=== PATIENT | female | born 1935 | race Caucasian/White ===

== ENCOUNTER 2018-05-25 13:39 | Emergency (ER) | payer MEDICARE, OTHER ==
[~2018-05-25] VITALS: Ht 160 cm; Wt 72.6 kg
[2018-05-25] MEDS ORDERED: LOSA50 PO (13:48)
[2018-05-25] MEDS ORDERED: DICLOFENAC SOD100 G1 TOP (13:48)
[2018-05-25] MEDS ORDERED: PRAVASTATIN SOD10 MG PO (13:48)
[2018-05-25] MEDS ORDERED: Hydrochloroth12.5 MG PO (13:48)
[2018-05-25] MEDS ORDERED: Norco 5-325 Ta1 EACH PO (16:35)
== END 2018-05-25 16:30 | disposition home or self-care (01) ==
LOC: ER 13:39
DX: S82.851A Displaced trimalleolar fracture of right lower leg, initial encounter for closed fracture (principal); E78.5 Hyperlipidemia, unspecified; I10 Essential (primary) hypertension; Z88.5 Allergy status to narcotic agent; Z88.8 Allergy status to other drugs, medicaments and biological substances; Z79.899 Other long term (current) drug therapy; W01.0XXA Fall on same level from slipping, tripping and stumbling without subsequent striking against object, initial encounter; Y92.096 Garden or yard of other non-institutional residence as the place of occurrence of the external cause
CPT/HCPCS: 27818; 73590; 73600; 73610; 96374-59; 99283-25; J3010

== ENCOUNTER 2018-05-30 11:15 | Day surgery (SDC) | payer MEDICARE, OTHER ==
[~2018-05-30] VITALS: Ht 160 cm; Wt 70.3 kg
[~2018-05-30 11:15] MED LIST: DICLOFENAC SOD100 G1 TOP; Hydrochloroth12.5 MG PO; LOSA50 PO; Norco 5-325 Ta1 EACH PO; PRAVASTATIN SOD10 MG PO
== END 2018-05-30 15:05 | disposition home or self-care (01) ==
LOC: ORSCSDS 11:15
PROVIDERS: Orthopaedic Surgery
PROC: 0QSJ04Z Reposition Right Fibula with Internal Fixation Device, Open Approach (ICD-10-PCS; principal; 2018-05-30 12:30)
DX: S82.841A Displaced bimalleolar fracture of right lower leg, initial encounter for closed fracture (principal); I10 Essential (primary) hypertension; E78.5 Hyperlipidemia, unspecified; Z79.899 Other long term (current) drug therapy
CPT/HCPCS: C1713; J0690; J1100; J2250; J2405; J2704; J3010; J7120

== ENCOUNTER → 2019-10-10 | Outpatient (CLI) | payer MEDICARE, OTHER ==
[~2019-10-10] MED LIST changes: +CEPH500 PO; +ONDA4ODT MM; +Percocet 5-3251 EACH PO
[2019-10-11 15:54] LABS: Adenovirus F 40/41 Not Detected (NOT DETECT); Astrovirus Not Detected (NOT DETECT); Campylobacter Sp Not Detected (NOT DETECT); Cryptosporidium Not Detected (NOT DETECT); Cyclospora Cayetanensis Not Detected (NOT DETECT); E. Coli O157 Not Detected (NOT DETECT); Entamoeba Histolytica Not Detected (NOT DETECT); Enteroaggregative E. coli-EAEC Not Detected (NOT DETECT); Enteropathogenic E. coli-EPEC Not Detected (NOT DETECT); Enterotoxigenic E. coli-ETEC Not Detected (NOT DETECT); Giardia Lamblia Not Detected (NOT DETECT); Norovirus GI/GII Not Detected (NOT DETECT); Plesiomonas Shigelloides Not Detected (NOT DETECT); Rotavirus A Not Detected (NOT DETECT); Salmonella Sp Not Detected (NOT DETECT); Sapovirus Not Detected (NOT DETECT); Shiga Toxin-prod E. coli-STEC Not Detected (NOT DETECT); Shigella/Enteroin E. coli-EIEC Not Detected (NOT DETECT); Vibrio Cholerae Not Detected (NOT DETECT); Vibrio Sp Not Detected (NOT DETECT); Yersinia Enterocolitica Not Detected (NOT DETECT)
== END | disposition home or self-care (01) ==
LOC: LAB SHORT 20:00 → LAB 20:00
PROVIDERS: Nurse Practitioner Family
DX: E78.5 Hyperlipidemia, unspecified (principal); R19.7 Diarrhea, unspecified; R10.0 Acute abdomen
CPT/HCPCS: 0097U; 89055

== ENCOUNTER → 2019-10-13 | Outpatient (CLI) | payer MEDICARE, OTHER | LOC: LAB 07:15 → LAB SHORT 07:15 → LAB FUT 10-09 11:30 | DX: R19.7 Diarrhea, unspecified (principal); R10.9 Unspecified abdominal pain | CPT/HCPCS: 87177; 87209 ==

== ENCOUNTER → 2021-01-19 | Outpatient (CLI) | payer MEDICARE, OTHER ==
[2021-01-19 10:54] LABS: Hematocrit 36.9 % (33.0-51.0); Hemoglobin 12.4 g/dL (11.5-16.0); Mean Corpuscular HGB 28.8 pg (26.0-34.0); Mean Corpuscular HGB Conc 33.6 g/dL (31.5-36.5); Mean Corpuscular Volume 86 fL (80-100); Mean Platelet Volume 9.8 fL (9.1-12.4); Platelet Count 238 K/mm3 (150-400); RDW Standard Deviation 43.9 fL (35.1-46.3); Red Blood Cell Count 4.31 M/mm3 (3.80-5.20); White Blood Cell Count 5.74 K/mm3 (4.00-11.30)
[2021-01-19 11:52] LABS: BAND PERCENT MAN 9 % (0-8); LYMPHOCYTES ABSOLUTE MAN 0.22 K/mm3 (0.84-5.20); LYMPHOCYTES PERCENT MAN 4 % (21-46); MONOCYTES ABSOLUTE MAN 0.22 K/mm3 (0.16-1.47); MONOCYTES PERCENT MAN 4 % (4-13); SEG NEUTROPHILS PERCENT MAN 80 % (41-73); TOTAL CELLS COUNTED 100
[2021-01-19 11:53] LABS: BASOPHILS ABSOLUTE MAN 0.05 K/mm3 (0.00-0.23); BASOPHILS PERCENT MAN 1 % (0-2); EOSINOPHILS ABSOLUTE MAN 0.11 K/mm3 (0.00-0.68); EOSINOPHILS PERCENT MAN 2 % (0-6)
[2021-01-19 11:55] LABS: Albumin, Blood 3.7 g/dL (3.4-5.0); Bilirubin, Total 0.5 mg/dL (0.1-1.0); Bun/Creatinine Ratio 21.9 (12.0-20.0); Calcium, Blood 9.3 mg/dL (8.5-10.1); Creatinine, Blood 0.91 mg/dL (0.40-1.00); Globulin, Blood 3.6 g/dL (2.2-4.0); Potassium, Blood 3.9 mmol/L (3.5-5.5); Total Protein, Blood 7.3 g/dL (6.4-8.2)
== END | disposition home or self-care (01) ==
LOC: LAB SHORT 10:41 → LAB 10:41
PROVIDERS: Physician Assistant
DX: R50.9 Fever, unspecified (principal); Z20.822 Contact with and (suspected) exposure to COVID-19
CPT/HCPCS: 80053; 85025; U0003

== ENCOUNTER 2023-01-19 16:53 | Inpatient (IN) | payer OTHER, MEDICARE ==
[~2023-01-19] VITALS: Ht 165.1 cm; Wt 64.5 kg
[2023-01-19 21:13] LABS: BASOPHILS ABSOLUTE AUTO 0.06 K/mm3 (0.00-0.23); BASOPHILS PERCENT AUTO 0 % (0-2); EOSINOPHILS ABSOLUTE AUTO 0.02 K/mm3 (0.00-0.68); EOSINOPHILS PERCENT AUTO 0 % (0-6); Hematocrit 35.8 % (33.0-51.0); Hemoglobin 11.5 g/dL (11.5-16.0); IMMATURE GRAN ABSOLUTE AUTO 0.09 K/mm3 (0.00-0.10); IMMATURE GRAN PERCENT AUTO 1 % (0-1); LYMPHOCYTES ABSOLUTE AUTO 1.14 K/mm3 (0.84-5.20); LYMPHOCYTES PERCENT AUTO 6 % (21-46); MONOCYTES ABSOLUTE AUTO 0.59 K/mm3 (0.16-1.47); MONOCYTES PERCENT AUTO 3 % (4-13); Mean Corpuscular HGB 29.9 pg (26.0-34.0); Mean Corpuscular HGB Conc 32.1 g/dL (31.5-36.5); Mean Corpuscular Volume 93 fL (80-100); Mean Platelet Volume 9.5 fL (9.1-12.4); NEUTROPHILS ABSOLUTE AUTO 16.39 K/mm3 (1.96-9.15); NEUTROPHILS PERCENT AUTO 90 % (41-73); Platelet Count 283 K/mm3 (150-400); RDW Coefficient Variation 14.1 % (11.7-14.2); RDW Standard Deviation 47.8 fL (35.1-46.3); Red Blood Cell Count 3.84 M/mm3 (3.80-5.20); White Blood Cell Count 18.29 K/mm3 (4.00-11.30)
[2023-01-19 21:39] LABS: Albumin/Globulin Ratio 1.2 (0.8-1.8); Bilirubin, Total 0.4 mg/dL (0.1-1.0); Bun/Creatinine Ratio 28.2 (12.0-20.0); Calcium, Blood 9.3 mg/dL (8.5-10.1); Creatinine, Blood 1.03 mg/dL (0.40-1.00); Globulin, Blood 3.2 g/dL (2.2-4.0); Potassium, Blood 4.3 mmol/L (3.5-5.5); Total Protein, Blood 7.2 g/dL (6.4-8.2)
[2023-01-19 22:42] LABS: International Normalized Ratio 1.06; Prothrombin Time Results 11.1 Sec (9.7-11.5)
[2023-01-20 05:16] LABS: BASOPHILS ABSOLUTE AUTO 0.02 K/mm3 (0.00-0.23); BASOPHILS PERCENT AUTO 0 % (0-2); EOSINOPHILS PERCENT AUTO 0 % (0-6); Hematocrit 29.6 % (33.0-51.0); Hemoglobin 9.8 g/dL (11.5-16.0); IMMATURE GRAN ABSOLUTE AUTO 0.05 K/mm3 (0.00-0.10); IMMATURE GRAN PERCENT AUTO 1 % (0-1); LYMPHOCYTES ABSOLUTE AUTO 1.04 K/mm3 (0.84-5.20); LYMPHOCYTES PERCENT AUTO 10 % (21-46); MONOCYTES ABSOLUTE AUTO 0.55 K/mm3 (0.16-1.47); MONOCYTES PERCENT AUTO 5 % (4-13); Mean Corpuscular HGB 30.3 pg (26.0-34.0); Mean Corpuscular HGB Conc 33.1 g/dL (31.5-36.5); Mean Corpuscular Volume 92 fL (80-100); Mean Platelet Volume 9.9 fL (9.1-12.4); NEUTROPHILS ABSOLUTE AUTO 8.95 K/mm3 (1.96-9.15); NEUTROPHILS PERCENT AUTO 84 % (41-73); Platelet Count 222 K/mm3 (150-400); RDW Standard Deviation 47.2 fL (35.1-46.3); Red Blood Cell Count 3.23 M/mm3 (3.80-5.20); White Blood Cell Count 10.61 K/mm3 (4.00-11.30)
[2023-01-20 05:41] LABS: Bun/Creatinine Ratio 33.7 (12.0-20.0); Calcium, Blood 8.3 mg/dL (8.5-10.1); Creatinine, Blood 0.77 mg/dL (0.40-1.00); Potassium, Blood 4.4 mmol/L (3.5-5.5)
[2023-01-20 09:36] VITALS: BP 127/80
[2023-01-20] MEDS ORDERED: ELIQUIS5 M2 PO (11:54)
[2023-01-20] MEDS ORDERED: Lovastatin20 MG PO (11:57)
[2023-01-20] MEDS ORDERED: METO50ER PO (11:58)
[2023-01-20] MEDS ORDERED: ACET325 PO (12:00)
[2023-01-20 14:44] VITALS: BP 130/63
--- NOTE | 2023-01-20 16:52 | NUR ---
SHIFT SUMMARY: RIGHT HUMERUS FX PATIENT IS [place] WITHOUT HER HEARING AIDS BUT IS A&OX4. VS ARE WNL AND IS ON RA. PAIN IS MANAGED WITH PO PERCOCET. HER RIGHT ARM IS IN A HARD SPLINT WITH AN ICE PACK ON TOP. SHE DENIES NUMBNESS OR TINGLING IN ALL EXTREMITIES. SHE IS A SBA TO THE BATHROOM. PATIENT IS TOLERATING PO INTAKE AND IS VOIDING. SHE IS CURRENTLY LAYING IN BED WITH CALL LIGHT IN REACH. THE PLAN IS TO HAVE SURGERY WITH DR. MENDOZA TOMORROW AND WILL BE NPO AT MIDNIGHT TONIGHT WELL CONTINUE PAIN MANAGEMENT.
[2023-01-20 19:49] VITALS: BP 112/62
[2023-01-21] VITALS (15 sets, daily range): BP systolic 89–136; BP diastolic 55–91
[2023-01-21 05:33] LABS: BASOPHILS ABSOLUTE AUTO 0.02 K/mm3 (0.00-0.23); BASOPHILS PERCENT AUTO 0 % (0-2); EOSINOPHILS ABSOLUTE AUTO 0.05 K/mm3 (0.00-0.68); EOSINOPHILS PERCENT AUTO 1 % (0-6); Hematocrit 27.5 % (33.0-51.0); Hemoglobin 9.1 g/dL (11.5-16.0); IMMATURE GRAN ABSOLUTE AUTO 0.05 K/mm3 (0.00-0.10); IMMATURE GRAN PERCENT AUTO 1 % (0-1); LYMPHOCYTES ABSOLUTE AUTO 1.62 K/mm3 (0.84-5.20); LYMPHOCYTES PERCENT AUTO 16 % (21-46); MONOCYTES ABSOLUTE AUTO 0.85 K/mm3 (0.16-1.47); MONOCYTES PERCENT AUTO 9 % (4-13); Mean Corpuscular HGB 30.2 pg (26.0-34.0); Mean Corpuscular HGB Conc 33.1 g/dL (31.5-36.5); Mean Corpuscular Volume 91 fL (80-100); Mean Platelet Volume 9.9 fL (9.1-12.4); NEUTROPHILS ABSOLUTE AUTO 7.26 K/mm3 (1.96-9.15); NEUTROPHILS PERCENT AUTO 74 % (41-73); Platelet Count 220 K/mm3 (150-400); RDW Coefficient Variation 14.2 % (11.7-14.2); RDW Standard Deviation 47.5 fL (35.1-46.3); Red Blood Cell Count 3.01 M/mm3 (3.80-5.20); White Blood Cell Count 9.85 K/mm3 (4.00-11.30)
--- NOTE | 2023-01-21 06:29 | NUR ---
SHIFT SUMMARY PT IS HERE WITH A RIGHT HUMERAL FX RESULTING FROM A GLF. PT HAS BEEN NPO SINCE MIDNIGHT FOR A POSSIBLE PROCEDURE AND HAS BEEN RESTING COMFORTABLY FOR THE MAJORITY OF THE SHIFT. PT IS STEADY AMBULATING TO THE BATHROOM AND HER PAIN HAS BEEN MANAGED PER EMAR. VITAL SIGNS HAVE BEEN STABLE WITH NO ACUTE EVENTS OCCURRING OVERNIGHT. BED IS IN LOWEST POSITION, CALL LIGHT IS WITHIN REACH.
[2023-01-21 06:31] LABS: Bun/Creatinine Ratio 25.8 (12.0-20.0); Calcium, Blood 8.7 mg/dL (8.5-10.1); Creatinine, Blood 0.74 mg/dL (0.40-1.00); Potassium, Blood 3.9 mmol/L (3.5-5.5)
--- NOTE | 2023-01-21 14:39 | NUR ---
PT HAS 20G IV TO LEFT AC THAT FLUSHES WELL AND FLOWS TO GRAVITY.
--- NOTE | 2023-01-21 15:18 | NUR ---
1505 ANESTHESIA AT BEDSIDE TO COMPLETE INTERSCALENE BLOCK. 2 RNS ALSO AT BEDSIDE. TIMEOUT COMPLETE AND CONSENT SIGNED. PT ON MONITOR THROUGHOUT PROCEDURE. PT TOLERATED WELL.
[2023-01-21 23:34] LABS: Hematocrit 27.5 % (33.0-51.0)
[2023-01-21 23:50] LABS: Bun/Creatinine Ratio 28.4 (12.0-20.0); Calcium, Blood 8.1 mg/dL (8.5-10.1); Creatinine, Blood 0.81 mg/dL (0.40-1.00); Potassium, Blood 4.6 mmol/L (3.5-5.5)
[2023-01-22] VITALS (14 sets, daily range): BP systolic 82–107; BP diastolic 53–78
--- NOTE | 2023-01-22 00:40 | NUR ---
LATE DOCUMENTATION PT ARRIVED BACK ONTO THE SURGICAL UNIT RIGHT AT SHIFT CHANGE THIS SHIFT (1899). AT 2019, THIS RN GOT A CALL FROM THE TELE DESK STATING THE PT'S HR WAS IN THE 150'S. PT WAS ROUNDED UPON, BUT THE PT WAS NOT SYMPTOMATIC IN ANY WAY AND HAD NO CHEST PAIN. PT TOLD THIS RN THAT SHE HAD MISSED HER 50 MG DOSE OF METOPROLOL BOTH ON 01/20 AND 01/21 BEFORE GOING IN FOR HER RIGHT HUMERAL FX REPAIR. HOWEVER, OR DID REPORT TO THE DAYSHIFT RN THAT THE PT DID RECEIVE A DOSE OF IV METOPROLOL TO LOWER HER HR. THIS RN CALLED THE HOSPITALIST STAN AT 2024 AND HE ORDERED AN EKG AND A 500 ML BOLUS OF FLUID. AT 2030, TELE DESK CALLED AGAIN AND STATED THE PT'S HR WAS RANGING FROM THE 150'S -190'S. THIS RN CALLED HOSPITALDANY [facility]ERCE AGAIN AND HE ORDERED AN IV METOPROLOL 5MG NOW DOSE AND LET THIS RN KNOW HE WAS COMING UP TO SEE THE PT. [facility] CAME TO ASSESS THE PT AND LOOK AT THE PT'S EKG IN PERSON. FIRST DOSE OF IV PUSH OF METOPROLOL GIVEN AT 2144, W/VS TAKEN AT 2154 (HR 120'S-140'S, BP 107/59). THIS INFORMATION RELAYED TO HOSPITALIST STAN BY THIS RN AND HE ORDERED ANOTHER 5MG IV PUSH DOSE OF METOPROLOL. THE PT'S REGULAR DAILY 50MG DOSE OF PO METOPROLOL WAS ALSO GIVEN PER HOSPITALIST. SECOND DOSE OF IV 5MG METOPROLOL GIVEN AT 2209. RESULTING VS AT 2219 WERE HR OF 120'S-130'S AND A BP OF 89/73. [facility] NOTIFIED OF PT'S VS AND HE ORDERED THE PT TO BE TRANSFERRED TO PCU. GAVE REPORT TO LUIS STAHL, IN PERSON AT 2244 AND THE PT WAS MOVED OVER TO [facility] AT 2254.
--- NOTE | 2023-01-22 04:13 | NUR ---
SHIFT SUMMARY. PT ARRIVED ON UNIT AT ~2305. AOX4, PLEASANT, COOPERATIVE WITH CARE. VERY UPPER [place]. HEARING AIDS CHARGING AT BEDSIDE. CALLS APPROPRIATELY FOR ASSISTANCE, STEADY 1-2 PERSON TRANSFER WITH WALKER. CONTINENT. STARTED DILITIAZEM DRIP SOON AFTER ARRIVAL FOR SUSTAINED HR IN 130s-140s. STARTED AT 5MG/HR. AFTER 15 MINUTES, SBP HAD DROPPED <90. STOPPED DRIP AT THAT TIME TO PREVENT FURTHER DECREASE IN BP. SINCE THAT TIME PT SBP HAS REMAINED IN THE REALM OF HIGH 80s TO LOW 100S WITH MAP REMAINING >65 THROUGHOUT. HR HAS SETTLED AND HAS MAINTAINED IN THE 100s-110s SINCE STOPPING DRIP. PT REMAINS ASYMPTOMATIC AND DENIES ANY CHEST PAIN OR PRESSURE. DENIES PAIN IN RUE. DISCUSSED WITH RUDDY ESPINOZA TO LEAVE DILITIAZEM DRIP STOPPED SO LONG HR MAINTAINS BELOW 120. BP REMAINS SOFT. CONTINUING TO MONITOR. BED LOCKED IN LOWEST POSITION. CALL LIGHT LEFT WITHIN REACH.
[2023-01-22 04:41] LABS: BASOPHILS PERCENT AUTO 0 % (0-2); EOSINOPHILS PERCENT AUTO 0 % (0-6); Hematocrit 25.1 % (33.0-51.0); Hemoglobin 8.2 g/dL (11.5-16.0); IMMATURE GRAN ABSOLUTE AUTO 0.04 K/mm3 (0.00-0.10); IMMATURE GRAN PERCENT AUTO 1 % (0-1); LYMPHOCYTES ABSOLUTE AUTO 0.65 K/mm3 (0.84-5.20); LYMPHOCYTES PERCENT AUTO 8 % (21-46); MONOCYTES ABSOLUTE AUTO 0.28 K/mm3 (0.16-1.47); MONOCYTES PERCENT AUTO 3 % (4-13); Mean Corpuscular HGB 30.3 pg (26.0-34.0); Mean Corpuscular HGB Conc 32.7 g/dL (31.5-36.5); Mean Corpuscular Volume 93 fL (80-100); Mean Platelet Volume 10.2 fL (9.1-12.4); NEUTROPHILS ABSOLUTE AUTO 7.57 K/mm3 (1.96-9.15); NEUTROPHILS PERCENT AUTO 89 % (41-73); Platelet Count 218 K/mm3 (150-400); RDW Coefficient Variation 14.1 % (11.7-14.2); RDW Standard Deviation 48.5 fL (35.1-46.3); Red Blood Cell Count 2.71 M/mm3 (3.80-5.20); White Blood Cell Count 8.54 K/mm3 (4.00-11.30)
[2023-01-22 05:34] LABS: Bun/Creatinine Ratio 32.5 (12.0-20.0); Creatinine, Blood 0.8 mg/dL (0.40-1.00); Potassium, Blood 4.8 mmol/L (3.5-5.5)
--- NOTE | 2023-01-22 07:45 | NUR ---
AM ASSESSMENT Pt resting in bed. HR shows NSR, BP stable. Pt denies CP or SOB. LS clear. BT positive. Pulses palp. R arm with sling, dressing intact. Bruising noted on R arm, Pt's bilateral eyes and L knee. Pt states that she is having 3/10 pain in her R arm. Will treat per orders. Pt up to bathroom and then chair with one person SBA and ronel walker. Call light in reach. Will continue to monitor.
--- NOTE | 2023-01-22 15:30 | NUR ---
DISCHARGE: Pt and her daughter were given verbal and written discharge instructions. Verbalzed understanding, denies questions. VSS. IV's were discontinued, caths intact. R arm in sling Pt understands activity restrictions. Sami walker in room to go home with patient. Pt left via w/c with PCT. Stable at time of discharge.
== END 2023-01-22 15:34 | disposition home health service (06) | DRG 494 ==
LOC: ER 16:53 → PCU 23:40 → SURS 23:40 → ERHOLD 23:40 → PCU 23:40 → SURS 01-20 09:22 → PCU 01-21 22:58
PROVIDERS: Family Medicine; Nurse Practitioner Acute Care; Orthopaedic Surgery; Student in an Organized Health Care Education/Training Program; ADMIT Internal Medicine
PROC: 0RSJ0ZZ Reposition Right Shoulder Joint, Open Approach (ICD-10-PCS; 2023-01-21)
PROC: 0PSF04Z Reposition Right Humeral Shaft with Internal Fixation Device, Open Approach (ICD-10-PCS; principal; 2023-01-21 14:30)
DX: S42.351A Displaced comminuted fracture of shaft of humerus, right arm, initial encounter for closed fracture (principal); S43.004A Unspecified dislocation of right shoulder joint, initial encounter; I48.0 Paroxysmal atrial fibrillation; I10 Essential (primary) hypertension; Z66 Do not resuscitate; E78.5 Hyperlipidemia, unspecified; K21.9 Gastro-esophageal reflux disease without esophagitis; S00.83XA Contusion of other part of head, initial encounter; W01.198A Fall on same level from slipping, tripping and stumbling with subsequent striking against other object, initial encounter; Y92.010 Kitchen of single-family (private) house as the place of occurrence of the external cause; R73.9 Hyperglycemia, unspecified; Z88.5 Allergy status to narcotic agent; Z88.8 Allergy status to other drugs, medicaments and biological substances; Z88.6 Allergy status to analgesic agent; Z91.018 Allergy to other foods; Z28.21 Immunization not carried out because of patient refusal
CPT/HCPCS: 23650; 36415; 70450; 73020; 73030; 73060; 73200; 76377; 80048; 80053; 82947; 83036; 83735; 85014; 85018; 85025; 85610; 93005; 93010; 94760; 96361-59; 96374; 96376; 97165; 97535; 99285-25; A9270; C1713; J0330; J0690; J1100; J2250; J2371; J2405; J2704; J3010; J7030; J7040; J7120

== ENCOUNTER 2023-03-23 06:23 | Inpatient (IN) | payer MEDICARE, OTHER ==
[2023-03-23] VITALS (21 sets, daily range): BP systolic 73–131; BP diastolic 42–105
[~2023-03-23] VITALS: Ht 160 cm; Wt 71.0 kg
[~2023-03-23 06:23] MED LIST changes: +ACET325 PO; +ELIQUIS5 M2 PO; +Lovastatin20 MG PO; +METO50ER PO
[2023-03-23 07:29] LABS: BASOPHILS ABSOLUTE AUTO 0.05 K/mm3 (0.00-0.23); BASOPHILS PERCENT AUTO 0 % (0-2); EOSINOPHILS PERCENT AUTO 1 % (0-6); Hematocrit 36.3 % (33.0-51.0); Hemoglobin 11.9 g/dL (11.5-16.0); IMMATURE GRAN ABSOLUTE AUTO 0.06 K/mm3 (0.00-0.10); IMMATURE GRAN PERCENT AUTO 0 % (0-1); LYMPHOCYTES ABSOLUTE AUTO 1.33 K/mm3 (0.84-5.20); LYMPHOCYTES PERCENT AUTO 9 % (21-46); MONOCYTES ABSOLUTE AUTO 0.66 K/mm3 (0.16-1.47); MONOCYTES PERCENT AUTO 5 % (4-13); Mean Corpuscular HGB 30.5 pg (26.0-34.0); Mean Corpuscular HGB Conc 32.8 g/dL (31.5-36.5); Mean Corpuscular Volume 93 fL (80-100); Mean Platelet Volume 9.5 fL (9.1-12.4); NEUTROPHILS ABSOLUTE AUTO 12.38 K/mm3 (1.96-9.15); NEUTROPHILS PERCENT AUTO 84 % (41-73); Platelet Count 299 K/mm3 (150-400); RDW Coefficient Variation 13.6 % (11.7-14.2); RDW Standard Deviation 46.3 fL (35.1-46.3); White Blood Cell Count 14.68 K/mm3 (4.00-11.30)
[2023-03-23 07:48] LABS: Albumin, Blood 3.8 g/dL (3.4-5.0); Albumin/Globulin Ratio 1.2 (0.8-1.8); Bilirubin, Total 0.4 mg/dL (0.1-1.0); Bun/Creatinine Ratio 28.5 (12.0-20.0); Calcium, Blood 9.3 mg/dL (8.5-10.1); Creatinine, Blood 0.84 mg/dL (0.40-1.00); Globulin, Blood 3.3 g/dL (2.2-4.0); Total Protein, Blood 7.1 g/dL (6.4-8.2)
[2023-03-23] MEDS ORDERED: Morphine Sulfate 4 MG/1 ML Injection IV PRN (08:00)
[2023-03-23] MEDS ORDERED: FLU VACC QS2023-24(6MOS UP)/PF 60 MCG/0.5 ML SYRINGE IM SCH (08:00)
[2023-03-23] MEDS ORDERED: Acetaminophen 325 MG TABLET PO PRN (08:05)
[2023-03-23] MEDS ORDERED: OxyCODONE HCL 5 MG TAB PO PRN (08:05)
[2023-03-23] MEDS ORDERED: TiZANidine HCl 4 MG Tab PO PRN (08:05)
[2023-03-23] MEDS ORDERED: Metoprolol Succinate 50 MG TABCR PO SCH (09:00)
[2023-03-23] MEDS ORDERED: Lactated Ringer's 1,000 ML IV SCH ×2 (09:50→15:15)
[2023-03-23 11:40] LABS: Source, Urine Foley catheter
[2023-03-23 11:58] LABS: Appearance, Urine Clear (Clear); Bilirubin, Urine Neg (Neg); Blood, Urine Neg (Neg); Color, Urine Yellow (P-Yellow); Glucose Qualitative, Urine Neg (Neg); Ketones, Urine Neg (Neg); Leukocyte Esterase, Urine Neg (Neg); Nitrite, Urine Neg (Neg); Protein, Urine 1+ (Neg); Urobilinogen, Urine NORM (Normal)
--- NOTE | 2023-03-23 12:07 | NUR ---
NEW ADMIT PATIENT ARRIVED TO FLOOR @0920, VITALS STABLE. ORIENTED TO ROOM, FAMILY AT BEDSIDE. PATIENT MEDICATED FOR PAIN. IV FLUIDS STARTED. LANGE CATH PLACED PER ORDERS. SURGEON IN ROOM TO CONSULT. PAIENT IS AOX4. CALL LIGHT IS IN REACH.
[2023-03-23] MEDS ORDERED: FentaNYL Citrate 50 MCG/ML 2 ML Injection ONE ×2 (15:07→16:38)
[2023-03-23] MEDS ORDERED: Midazolam HCl 1MG / ML 2ML Vial ONE (15:07)
[2023-03-23] MEDS ORDERED: propofoL 20 ML IV ONE (15:07)
[2023-03-23] MEDS ORDERED: CeFAZolin Sodium 2,000 MG in NS 50 ML IV SCH (15:35)
[2023-03-23] MEDS ORDERED: Dexamethasone Sod Phos 10 MG/ML 1ML VIAL ONE (15:46)
[2023-03-23] MEDS ORDERED: Ketorolac Tromethamine 30mg Vial ONE (15:46)
[2023-03-23] MEDS ORDERED: Ondansetron HCl 2 MG / ML 2ML Vial ONE (15:46)
[2023-03-23] MEDS ORDERED: Tranexamic Acid 710 MG in NS 100 ML IV SCH (15:55)
[2023-03-23] MEDS ORDERED: Bupivacaine HCl 2.5 MG/ML 10ML P/F Injection ONE (16:17)
[2023-03-23] MEDS ORDERED: EpiNEPhrine 1 MG/1 ML 1ML Vial ONE (16:18)
[2023-03-23] MEDS ORDERED: Metoclopramide HCl 5MG / ML 2ML Vial IV PRN (16:20)
[2023-03-23] MEDS ORDERED: Bupivacaine HCl 0.25% 30 ML Injection ONE (16:20)
[2023-03-23] MEDS ORDERED: FentaNYL Citrate 50 MCG/ML 2 ML Injection IV PRN ×2 (16:20)
[2023-03-23] MEDS ORDERED: Labetalol HCL 5 MG/ML 4ML Injection (Single Dose) IV PRN (16:20)
--- NOTE | 2023-03-23 16:35 | NUR ---
03/23/23 1635 Gabbi Barbour PATIENT ARRIVED TO OR WITH LANGE CATHETER IN PLACE DRAINING YELLOW URINE.
--- NOTE | 2023-03-23 16:50 | NUR ---
PT TO DAY SURGERY @3740
[2023-03-24] VITALS (21 sets, daily range): BP systolic 64–117; BP diastolic 44–64
[2023-03-24] MEDS ORDERED: CeFAZolin Sodium 2,000 MG in NS 50 ML IV SCH
[2023-03-24] MEDS ORDERED: Midodrine 5 MG Tab PO ONE (01:45)
[2023-03-24] MEDS ORDERED: NS 1,000 ML IV ONE (01:45)
--- NOTE | 2023-03-24 02:00 | NUR ---
BP MANAGEMENT AT THE BEGINNING OF THIS SHIFT, PT WAS NOTED TO BE HYPOTENSIVE W/ POST OP VITALS. PT REMAINED ASYMPTOMATIC AT THIS TIME. CALL PALCED TO HOSPITALIST AND WAS GIVEN AN ORDER OF 500 LR W/THE FLUID ORDER THAT THE PATIENT ALREADY HAD RUNNING. BP NOTED TO SLIGHTLY IMPROVE @ 0000. PT SPOT CHECKED AT 0140 AND A BP OF 64/44 WAS TAKEN. CALL PLACED TO HOSPITALIST AGAIN AND GIVEN AN ORDER FOR 1L NS W/5MG MIDODRINE. PT REMAINS ASYMPTOMATIC AT THIS TIME. PLAN TO REASSESS WHEN 2ND BOLUS IS FINISHED INFUSING.
[2023-03-24 03:20] LABS: BASOPHILS PERCENT AUTO 0 % (0-2); EOSINOPHILS PERCENT AUTO 0 % (0-6); Hematocrit 20.7 % (33.0-51.0); Hemoglobin 6.9 g/dL (11.5-16.0); IMMATURE GRAN ABSOLUTE AUTO 0.03 K/mm3 (0.00-0.10); IMMATURE GRAN PERCENT AUTO 0 % (0-1); LYMPHOCYTES ABSOLUTE AUTO 0.89 K/mm3 (0.84-5.20); LYMPHOCYTES PERCENT AUTO 8 % (21-46); MONOCYTES ABSOLUTE AUTO 0.86 K/mm3 (0.16-1.47); MONOCYTES PERCENT AUTO 8 % (4-13); Mean Corpuscular HGB 30.9 pg (26.0-34.0); Mean Corpuscular HGB Conc 33.3 g/dL (31.5-36.5); Mean Corpuscular Volume 93 fL (80-100); Mean Platelet Volume 9.8 fL (9.1-12.4); NEUTROPHILS ABSOLUTE AUTO 8.92 K/mm3 (1.96-9.15); NEUTROPHILS PERCENT AUTO 83 % (41-73); Platelet Count 202 K/mm3 (150-400); RDW Coefficient Variation 13.6 % (11.7-14.2); Red Blood Cell Count 2.23 M/mm3 (3.80-5.20)
[2023-03-24 03:40] LABS: Magnesium, Blood 1.6 mg/dL (1.6-2.4)
[2023-03-24 03:41] LABS: Calcium, Blood 7.9 mg/dL (8.5-10.1); Creatinine, Blood 1.26 mg/dL (0.40-1.00); Potassium, Blood 4.5 mmol/L (3.5-5.5)
--- NOTE | 2023-03-24 03:51 | NUR ---
HOSPITALIST CONTACT CALL PLACED TO HOSPITALIST D/T PERSISTANT HYPOTENTION, INCREASED SWELLING IN RLE, AND LOW H/H. DR. OSCAR STATED HE WOULD PUT ORDERS IN AND THAT HE WOULD COME TO THE FLOOR TO ASSESS THE PATIENT.
[2023-03-24] MEDS ORDERED: NS 500 ML IV SCH (04:05)
--- NOTE | 2023-03-24 05:31 | NUR ---
SHIFT SUMMARY POD1 R HIP RODDING. DRESSINGS APPEAR C/D/I. SWELLING NOTED IN RLE THIGH. THE SWELLING MOSTLY COVERS THE PATIENTS LATERAL THIGH. WHEN POSTERIOR THIGH OBSERVED, ONLY ONE SMALL PURPLE BRUISE NOTED. PERSISTANT HYPOTENTION NOTED. AWAITING TO ADMINISTER BLOOD AT THIS TIME FOR [address]GB[address] PERFORMED. PT REMAINS A/OX4, ON RA. LANGE IN PLACE, LOW URINE OUTPUT NOTED. PT MEDICATED FOR PAIN AT THE BEGINNING OF SHIFT, BUT HAS SINCE DENIED NEED FOR ANY PAIN MEDICATION. MOVING EASILY AND REMAINS PLEASENT.
[2023-03-24] MEDS ORDERED: NS 250 ML IV PRN (06:15)
--- NOTE | 2023-03-24 14:43 | NUR ---
SHIFT SUMMARY: POD 1 RIGHT HIP RODDING PATIENT IS A&OX4. PATIENT HAS HAD X2 UNITS OF RBC BAGS TO HELP IMPROVE HER SBP WELL HER HgB LEVELS. PATIENTS SBP HAS BEEN RANGING BETWEEN 90'S AND 110 BEING THE HIGHEST SO FAR THIS SHIFT. LABS WILL BE CHECKED TOMORROW MORNING. PATIENT DENIES LIGHTHEADEDNESS OR SHORTNESS OF BREATH THROUGHOUT SHIFT. HER RIGHT HIP HAS X2 DRESSINGS WITH GAUZE AND TEGADERM THAT ARE C/D/I. HER RIGHT HIP HAS +1 EDEMA BUT AN ICE PACK HAS BEEN PLACED TO HELP WITH THE SWELLING AND PAIN. PAIN IS ALSO MANAGED WITH PO TYLENOL AND OXY AT THIS TIME. PATIENT DENIES NUMBNESS OR TINGLING IN ALL EXTREMITITES. HER RIGHT SHOULDER HAS LIMITED RANGE OF MOTION FROM PRIOR SURGERY IN JANUARY BUT INCISION IS HEALING AND INTACT. PATIENT DID WORK WITH PHYSICAL THERAPY TODAY AND THEY ARE RECOMMENDING REHAB FOR THE PATIENT. PATIENT IS TOLERATING PO INTAKE AND IS PASSING GAS. HER LANGE IS DRAINING PER GRAVITY WITH A SMALL AMOUNT OF URINE OUTPUT. PATIENT IS LAYING IN BED WITH CALL LIGHT IN REACH. PATIENT CALLS APPROPRIATELY. THE PLAN IS TO CONTINUE TO MONITOR PATIENTS VITALS AND CONTINUE PAIN MANAGEMENT. SHE WILL BE DISCHARGED TO A REHAB WHEN MEDICALLY STABLE AND AFTER X3 MIDNIGHTS DUE TO INSURANCE REASONS.
--- NOTE | 2023-03-25 04:27 | NUR ---
SHIFT SUMMARY PT SLEPT T/O NIGHT. DENIES ANY PAIN DURING THE NIGHT. STATES "SHE FEELS GREAT" HAVING GOOD OUTPUT IN THE LANGE. DENIES ANY N/T IN LOWER EXT'S. VSS. NO OTHER CONCERNS AT THIS TIME. CALL LIGHT WITHIN REACH
[2023-03-25 04:46] VITALS: BP 141/61
[2023-03-25 07:24] VITALS: BP 118/60
[2023-03-25 12:35] LABS: BASOPHILS ABSOLUTE AUTO 0.02 K/mm3 (0.00-0.23); BASOPHILS PERCENT AUTO 0 % (0-2); EOSINOPHILS ABSOLUTE AUTO 0.01 K/mm3 (0.00-0.68); EOSINOPHILS PERCENT AUTO 0 % (0-6); Hematocrit 26.6 % (33.0-51.0); IMMATURE GRAN ABSOLUTE AUTO 0.05 K/mm3 (0.00-0.10); IMMATURE GRAN PERCENT AUTO 1 % (0-1); LYMPHOCYTES ABSOLUTE AUTO 1.08 K/mm3 (0.84-5.20); LYMPHOCYTES PERCENT AUTO 10 % (21-46); MONOCYTES PERCENT AUTO 9 % (4-13); Mean Corpuscular HGB 30.4 pg (26.0-34.0); Mean Corpuscular HGB Conc 33.8 g/dL (31.5-36.5); Mean Corpuscular Volume 90 fL (80-100); Mean Platelet Volume 9.6 fL (9.1-12.4); NEUTROPHILS ABSOLUTE AUTO 8.47 K/mm3 (1.96-9.15); NEUTROPHILS PERCENT AUTO 80 % (41-73); Platelet Count 191 K/mm3 (150-400); RDW Coefficient Variation 14.5 % (11.7-14.2); RDW Standard Deviation 47.5 fL (35.1-46.3); Red Blood Cell Count 2.96 M/mm3 (3.80-5.20); White Blood Cell Count 10.63 K/mm3 (4.00-11.30)
[2023-03-25 13:02] LABS: Albumin, Blood 2.7 g/dL (3.4-5.0); Anion Gap 3 mmol/L (6-16); Blood Urea Nitrogen 26 mg/dL (8-24); Bun/Creatinine Ratio 34.3 (12.0-20.0); CO2, Blood 25 mmol/L (21-32); Calcium, Blood 8.4 mg/dL (8.5-10.1); Chloride, Blood 105 mmol/L (98-108); Creatinine, Blood 0.76 mg/dL (0.40-1.00); Glomerular Filtration Rate 76 (60-); Glucose, Blood 111 mg/dL (70-99); Phosphorus, Blood 2.6 mg/dL (2.5-4.9); Potassium, Blood 4.6 mmol/L (3.5-5.5); Sodium, Blood 133 mmol/L (136-145)
[2023-03-25 14:32] VITALS: BP 112/52
--- NOTE | 2023-03-25 15:07 | NUR ---
SHIFT SUMMARY PT A&OX4, VSS/RA, BALDEV PO, VOIDING/BSC, STAND PIVOT X2 PPL/FWW/GB, UP TO CHAIR, PAIN MANAGED WITH OXY 5MG & TYLENOL, IVF @ 125 MLS/HR. WILL REPORT TO NEXT RN.
--- NOTE | 2023-03-25 18:41 | NUR ---
AQUACEL DRESSING X2 APPLIED TO R HIP
[2023-03-25 20:27] VITALS: BP 128/64
[2023-03-26 02:06] VITALS: BP 120/57
--- NOTE | 2023-03-26 06:17 | NUR ---
SHIFT SUMMARY POD3 R HIP RODDING. AQUALCEL IS C/D/I. SENSATION AND CIRCULATION REMAINS INTACT. VSS. PT SLEPT WELL T/O THE NIGHT. AMBULATED TO BSC A FEW TIMES W/STAFF. VOIDING W/O DIFFICULTY. MINIMAL PO INTAKE NOTED, PT ENCOURAGED T/O THE NIGHT TO INCREASE FLUIDS. MEDICATED FOR PAIN TEICE W/ ORALS W/GOOD RESULTS. PLAN TO CONTINUE PT/OT AND D/C TO SNF WHEN CLEARED.
[2023-03-26 07:32] VITALS: BP 123/64
[2023-03-26] MEDS ORDERED: Apixaban 5 MG Tab PO SCH (09:00)
[2023-03-26 10:09] LABS: SARS-Cov-2 (COVID-19) PCR, MMC NEGATIVE (NEGATIVE)
--- NOTE | 2023-03-26 12:46 | NUR ---
DISCHARGE POD3 R HIP NAILING, AQUACEL X2 CDI, WBAT. AMB FWW/GB/UP TO CHAIR/FEW STEPS TO BSC/CHAIR/BED, BALDEV PO, VOIDING, PAIN MANAGED, PASSING LARGE AMT FLATUS/BOWEL SMEAR, IV DCD. [facility].
== END 2023-03-26 11:34 | DRG 481 ==
LOC: ER 06:23 → SURS 07:57
PROVIDERS: Emergency Medicine; Orthopaedic Surgery Sports Medicine; ADMIT Family Medicine
PROC: 0QS606Z Reposition Right Upper Femur with Intramedullary Internal Fixation Device, Open Approach (ICD-10-PCS; principal; 2023-03-23 15:30)
PROC: 30233N1 Transfusion of Nonautologous Red Blood Cells into Peripheral Vein, Percutaneous Approach (ICD-10-PCS; 2023-03-24)
DX: S72.141A Displaced intertrochanteric fracture of right femur, initial encounter for closed fracture (principal); D62 Acute posthemorrhagic anemia; I48.91 Unspecified atrial fibrillation; Z11.52 Encounter for screening for COVID-19; I12.9 Hypertensive chronic kidney disease with stage 1 through stage 4 chronic kidney disease, or unspecified chronic kidney disease; M19.90 Unspecified osteoarthritis, unspecified site; N18.9 Chronic kidney disease, unspecified; K21.9 Gastro-esophageal reflux disease without esophagitis; E78.5 Hyperlipidemia, unspecified; S42.291D Other displaced fracture of upper end of right humerus, subsequent encounter for fracture with routine healing; S72.21XA Displaced subtrochanteric fracture of right femur, initial encounter for closed fracture; Z88.8 Allergy status to other drugs, medicaments and biological substances; Z91.018 Allergy to other foods; Z79.01 Long term (current) use of anticoagulants; Z79.899 Other long term (current) drug therapy; W01.0XXA Fall on same level from slipping, tripping and stumbling without subsequent striking against object, initial encounter; Y92.000 Kitchen of unspecified non-institutional (private) residence as the place of occurrence of the external cause
CPT/HCPCS: 36415; 72193; 73502; 80048; 80053; 80069; 83735; 85025; 86850; 86900; 86901; 86923; 93306; 94760; 97110; 97116; 97162; 97166; 97530; 97535; 99284-25; A9270; C1713; C1769; J0171; J0690; J1100; J1885; J2250; J2405; J2704; J3010; J7030; J7050; J7120; P9016; Q9967; U0002

== ENCOUNTER 2023-11-10 11:12 | Day surgery (SDC) | payer MEDICARE, OTHER ==
[2023-11-10] VITALS (8 sets, daily range): BP systolic 132–151; BP diastolic 66–82
[~2023-11-10] VITALS: Ht 157.5 cm; Wt 61.3 kg
[~2023-11-10 11:12] MED LIST changes: +CeFAZolin Sodium 2,000 MG in NS 100 ML IV SCH; +Lactated Ringer's 1,000 ML IV SCH; +Tranexamic Acid 100 ML IV SCH
--- NOTE | 2023-11-10 11:40 | NUR ---
PT TO [facility] FOR R Hardware Removal CEPHALOMEDULLARY NAIL WITH DR BURK. PT CHART REVIEWED. PLAN OF CARE DISCUSSED WITH PT. PT NPO SINCE YESTERDAY. PT HAS RIDE HOME.
--- NOTE | 2023-11-10 12:07 | NUR ---
[facility] 2 IV ATTEMPTS
[2023-11-10] MEDS ORDERED: Bupivacaine 0.5% HCl 5 MG/ML 30MLVIAL ONE (12:14)
--- NOTE | 2023-11-10 12:55 | NUR ---
PT TOOK OUT DENTURES PRIOR TO OR, RN TOOK TO PACU. PT LEFT BOTH HEARING AIDES IN AND OR WILL TAKE OUT.
[2023-11-10] MEDS ORDERED: Etomidate 2MG / ML 10ML Vial ONE (13:01)
[2023-11-10] MEDS ORDERED: FentaNYL Citrate 50 MCG/ML 2 ML Injection ONE (13:02)
[2023-11-10] MEDS ORDERED: Phenylephrine HCl 10mg/ml 1 ml Vial ONE (13:22)
--- NOTE | 2023-11-10 13:34 | NUR ---
11/10/23 1334 Mariana Baeza BUPIVACAINE 0.5% WAS MIXED WITH EPI BY ANESTHESIOLOGIST TO CREATE A SOLUTION OF BUPIVACAINE 0.5% WITH EPI 1:200,000. MIXTURE WAS POURED ONTO THE STERILE FIELD.
[2023-11-10] MEDS ORDERED: Sodium Chloride 0.9% Inj 10 ML IV ONE (14:03)
[2023-11-10] MEDS ORDERED: EpiNEPhrine 1 MG/1 ML 1ML Vial ONE (14:03)
[2023-11-10] MEDS ORDERED: OxyCODONE HCL 5 MG TAB PO PRN (14:25)
--- NOTE | 2023-11-10 15:20 | NUR ---
Discharge instructions reviewed with patient. Patient verbalizes understanding. Copy given to patient to take home. Dressings c/d/i. WB status clarified with surgeon, WBMEET. Patient States Post-Procedure ride home has been arranged. Discharged via wheelchair to private car for ride home.
== END 2023-11-10 15:25 | disposition home or self-care (01) ==
LOC: ORSCMMR 11:12 → ORD 12:30 → ORSCMMR 15:25
PROVIDERS: Orthopaedic Surgery Sports Medicine
PROC: 0QP104Z Removal of Internal Fixation Device from Sacrum, Open Approach (ICD-10-PCS; principal; 2023-11-10 12:30)
DX: S72.001D Fracture of unspecified part of neck of right femur, subsequent encounter for closed fracture with routine healing (principal); I10 Essential (primary) hypertension; K21.9 Gastro-esophageal reflux disease without esophagitis; Z79.899 Other long term (current) drug therapy
CPT/HCPCS: 84132; A9270; C1713; C1769; J0171; J0690; J2371; J3010; J7120